=== PATIENT | female | born 1945 | race Caucasian/White ===

== ENCOUNTER 2023-09-12 15:10 | Emergency (ER) | payer MEDICARE, BC, SELFPAY ==
[2023-09-12 15:12] VITALS: BP 170/78
--- NOTE | 2023-09-12 15:49 | ED.GENMED ---
History of Present Illness
<Sadaf Ledesma PA-C - Last Filed: 09/12/23 18:38>
General
Chief Complaint: Head Injury
Source: patient
Exam Limitations: none
Time Seen by Provider: 09/12/23 15:33
Nursing documentation reviewed up to this point in time: agreed with
Travel History
Have you had any contact with someone who has COVID-19?: No
Do you have any symptoms of coronavirus? Fever > 100 degrees, chills, cough, shortness of breath, sore throat, loss of taste or smell, muscle aches, or headache?: No
History of Present Illness
History of Present Illness:
Patient is a 78-year-old female with history subdural hemorrhage, hypertension, GERD presenting to the emergency department for evaluation following unwitnessed fall earlier today. Patient states that she was working at the [employer] a few hours ago
when she lost her footing and fell face forward striking her face on the concrete. Patient did not lose consciousness. She did sustain a laceration to her upper inner lip. She was able to call for help and had some assistance getting up. She sat
in the car briefly and then drove herself to an urgent care for further evaluation. They referred her to the emergency department for which her friend brought her.
At this time�patient denies any headache, nausea/vomiting, blurry vision, neck pain, back pain, confusion. She has some pain surrounding the laceration of her lip.
Of note�patient did have a fall back in May which resulted in a small subdural hematoma that was managed conservatively. She has had some lingering dizziness/vertigo since and is following with physical therapy.
Patient does not take any blood thinners.
Phy Exam
<Sadaf Ledesma PA-C - Last Filed: 09/12/23 18:38>
Physical Exam
Physical Exam:
General: In no apparent distress, nontoxic appearing
HEENT: Atraumatic, normocephalic; pupils equal round and reactive to light bilaterally, extraocular muscles intact, no tenderness surrounding orbit, no tenderness to nasal bridge, approximately 2 cm L-shaped laceration on upper inner lip on mucosal
surface with surrounding contusion, uvula midline, protecting airway
Neck: No cervical spine or midline spinal tenderness, appears supple, trachea midline
CV: Regular rate and rhythm, no evidence of cyanosis
Resp: Lungs clear bilaterally, no accessory muscle use
Abd: Soft, nontender non-distended
Extremities: No deformities, no evidence of cyanosis or edema; minor contusion to left thenar eminence but no tenderness at wrist and full range of motion of wrist
Neuro: alert and oriented x 3 to person, place, time; speech normal; strength 5 out of 5 in upper and lower extremities; sensation normal; cranial nerves II through XII intact bilaterally, normal [id number]
Psych: Normal affect
Skin: Laceration to upper inner lip as described above
Course
<Sadaf Ledesma PA-C - Last Filed: 09/12/23 18:38>
Orders/Labs/Results
Orders:
Orders
09/12/23 15:18
CT Head W/o Iv Contrast Urgent
Comment: Recent subdural hematoma in 05/2023
Reason For Exam: fall onto face from standing, fat upper lip
09/12/23 16:10
Tetanus/Diphth/Acelpertussis [Adacel] 0.5 ml IM .ONCE ONE
Vital Signs
Initial and Last Documented VS:
Initial Vital Signs
Temp Pulse Resp BP Pulse Ox
97.8 F 56 18 170/78 97
09/12/23 15:12 09/12/23 15:12 09/12/23 15:12 09/12/23 15:12 09/12/23 15:12
Last Documented Vital Signs
Temp Pulse Resp BP Pulse Ox
97.8 F 67 18 163/81 97
09/12/23 15:12 09/12/23 18:16 09/12/23 15:12 09/12/23 18:16 09/12/23 15:12
<Mehran Byrne MD - Last Filed: 09/12/23 18:14>
Orders/Labs/Results
Orders:
Orders
09/12/23 15:18
CT Head W/o Iv Contrast Urgent
Comment: Recent subdural hematoma in 05/2023
Reason For Exam: fall onto face from standing, fat upper lip
09/12/23 16:10
Tetanus/Diphth/Acelpertussis [Adacel] 0.5 ml IM .ONCE ONE
Vital Signs
Initial and Last Documented VS:
Initial Vital Signs
Temp Pulse Resp BP Pulse Ox
97.8 F 56 18 170/78 97
09/12/23 15:12 09/12/23 15:12 09/12/23 15:12 09/12/23 15:12 09/12/23 15:12
Last Documented Vital Signs
Temp Pulse Resp BP Pulse Ox
97.8 F 67 18 163/81 97
09/12/23 15:12 09/12/23 18:16 09/12/23 15:12 09/12/23 18:16 09/12/23 15:12
Procedures
<Sadaf Ledesma PA-C - Last Filed: 09/12/23 18:38>
Laceration Closure
Upper inner lip:
Status of Wound: clean
Size of Wound in cm: 2
Description of Wound Edges: sharp
Preparation: cleaned with saline
Anesthesia: 1% Lidocaine with epi and added Na Bicarb to local
Revision/Debridement: routine- no revision
Wound exploration: explored to base- no FB
Type of Closure: interrupted sutures
Skin Closure Material: 5-0 chromic gut
Number of sutures: 2
<Sadaf Ledesma PA-C - Last Filed: 09/12/23 18:38>
MDM/Problems Addressed
Differential Diagnosis Includes:
Not limited to: Laceration, contusion, concussion, doubt inserted parenchymal bleed
MDM/Problems Addressed:
Patient is a 78-year-old female with history of subdural hemorrhage presenting for evaluation s/p mechanical fall with facial strike on cement and associated lip laceration. There was no loss of consciousness. Patient denies any headache,
nausea/vomiting, neck pain, back pain, visual changes. No blood thinners. Vital signs are stable. Exam as above. There are no focal neurologic deficits on exam. She does have an approximately 2 cm L-shaped laceration on her upper inner lip on
mucosal surface. Given history�will check CT head. Will irrigate, close lip laceration. Update Tdap.
CT head negative for any evidence of acute intracranial abnormalities.. Radiologist did make note that prior subdural hemorrhage from 06/01/23 has completely resolved.
Given laceration is gaping�we will close 1-2 absorbable stitches. Area anesthetized with 1% lido with epinephrine. Irrigated with saline. Closed with 2 simple interrupted 5-0 Chromic Gut sutures. Laceration not actively bleeding. Patient
handling oral secretions, feeling fine. Stable for discharge with close return precautions, primary care follow-up as needed.
Chronic conditions affecting care:
Prior subdural hemorrhage, hypertension
Acute Exacerbation and/or Progression of Chronic Illness:
N/A
<Sadaf Ledesma PA-C - Last Filed: 09/12/23 18:38>
*Radiology
Radiology exam reviewed: preliminary read by ED provider and radiology read reviewed
*Pulse Oximetry
Patient hypoxic: no
*EKG
Interpreted by ED Provider?: NA
*Crocodile Farmer Interpretation
Rate: Crocodile Farmer- N/A
*Critical Care Note
Total Time (30-74mins, 75-104mins- exclusive of procedures): Not Applicable
Data Reviewed
Review of Other/Old Records Reveals: Labs, Records and Radiology Studies
Source: patient and previous hospital records
ED Attending Note
<Sadaf Ledesma PA-C - Last Filed: 09/12/23 18:38>
-
Portions of this chart may have been created with voice recognition software.� Occasional wrong word or��sound alike� substitutions may have occurred due to the inherent limitations of voice recognition software.
<Mehran Byrne MD - Last Filed: 09/12/23 18:14>
ED Attending Note
Patient seen and examined by attending physician: Yes
ED Attending Note:
HPI: 78-year-old female with history as documented presents to the emergency room for evaluation after mechanical fall. Patient says that she was walking with her cane and she tripped and fell forward on concrete. She hit her upper lip on the
pavement and sustained a laceration to her inner lip. She did not pass out or lose consciousness. She denies any headache. She denies any other serious injuries during the fall. Denies any nausea or vomiting. Came in for assessment. She does
not take any blood thinners. She did notably have a traumatic subdural hematoma in May after a fall.
ROS: Positive for lip laceration
Physical exam:
General: Awake, alert, oriented x3; no acute distress
Head: Normocephalic, minor contusion to the upper lip on the left, no cephalohematoma
Eyes: Conjunctiva normal
Throat: Airway intact, handling secretions; patient has a somewhat gaping approximate 1 cm laceration on the inner upper lip on the left
Neck: Trachea midline, no cervical spine tenderness, full range of motion without discomfort in the cervical spine
Back: No tenderness in the thoracic or lumbar spine or in the posterior ribs; no signs of trauma to the back or flank
Lungs: Breathing comfortably nondistressed
Heart: Regular rate; no chest wall tenderness
Abd: Soft, non distended, nontender
Neuro: No gross deficits
Skin: Left upper lip contusion, left inner lip laceration
Extremities: Patient has very minor contusion to the left thenar eminence but no significant tenderness in the left wrist, full range of motion of the left wrist without significant discomfort; rest of extremities are atraumatic, warm and
well-perfused and she allows for comfortable range of motion in all extremities
Differential diagnosis: Most rule out intracranial hemorrhage given her history
Medical decision makin-year-old female presents after mechanical trip and fall with facial trauma. She is a minor upper inner lip laceration that is gaping will require 1-2 stitches. No other serious traumatic injuries. Will check CT head.
Update tetanus. Repair laceration.
CT head negative for any acute pathology. Laceration repaired as documented procedure note. Discharged.
Chronic conditions affecting care: N/A
Acute exacerbation or progression of chronic illness: Acutely hypertensive improved without intervention continue to monitor but no indication for emergent antihypertensive treatment at present
History source: Patient
Data reviewed: Prior visits, prior imaging
Medications/testing considered: N/A
Social determinants of health: N/A
Discussion with other providers: N/A
Discharge Plan
Departure
Patient Disposition: Home (Routine Discharge)
Date of Disposition: 09/12/23
Time of Disposition: 18:08
Patient with high blood pressure during this ER visit?: Yes
Discharge Problem:
Head injury, Laceration of lip
Instructions: Wound Care (DC), Minor Head Injury (DC)
Prescriptions:
New
meclizine 12.5 mg tablet
12.5 mg PO TID PRN (Reason: dizziness) Qty: 10 0RF
No Action
cetirizine 10 MG tablet
10 mg PO DAILY
omeprazole 40 MG capsule,delayed release(DR/EC)
40 mg PO DAILY
calcium carbonate 500 MG tablet
500 mg PO MEALS
cholecalciferol (vitamin D3) [Vitamin D3] 25 mcg (1,000 unit) Capsule
25 mcg PO DAILY Qty: 0
solifenacin 5 MG tablet
10 mg PO DAILY
B-complex with vitamin C 1 EACH tablet
1 tab PO Q48H
sertraline 100 mg tablet
100 mg PO DAILY
metoprolol tartrate 25 mg Tablet
12.5 mg PO BID Qty: 30 0RF
Rx Instructions:
Hold for HR<65
meclizine 12.5 mg Tablet
12.5 mg PO Q8HPRN PRN (Reason: dizziness) Qty: 10 0RF
Referrals:
Pj Strauss DO [Family Provider] - Follow up in 5-7 days
Activity Restrictions/Additional Instructions:
� Return to the emergency department with any severe headache, vision changes, intractable nausea/vomiting, confusion, persistent dizziness, or any signs of infection including significant pain and/or swelling, pus draining from wound, high fevers
-As discussed�your head CT today showed no evidence of a bleed or fracture. Please continue to monitor symptoms and return promptly if you notice any worsening in condition
-As discussed�the 2 sutures are placed in your laceration will dissolve. Please return with any signs of infection or see your primary care provider
-You should follow-up with your primary care provider to ensure symptoms are improving and laceration is healing well in the next 5 to 7 days.
Interventions
Interventions:
*Risk Screen - Suicide Last Done: 09/12/23 16:23
*General Assessment Last Done: 09/12/23 16:23
*Neglect/Abuse Screening Last Done: 09/12/23 16:23
*Nursing Disposition Last Done: 09/12/23 18:27
ED- Neurological Assessment Last Done: 09/12/23 16:23
ED-Skin Assessment Last Done: 09/12/23 16:23
Discharge Date and Time
Print Language: GEORGIAN
[2023-09-12] MEDS: ADACEL 0.5 ML IM (16:29)
[2023-09-12 16:32] VITALS: BP 155/67
[2023-09-12 18:16] VITALS: BP 163/81
[2023-09-12 18:27] VITALS: BP 163/81
== END 2023-09-12 18:28 | disposition home or self-care (01) ==
LOC: EMR 15:10
PROVIDERS: EMERGENCY PHYSICIAN Emergency Medicine; FAMILY PHYSICIAN Family Medicine
DX: S09.90XA Unspecified injury of head, initial encounter (principal); S01.511A Laceration without foreign body of lip, initial encounter; W01.0XXA Fall on same level from slipping, tripping and stumbling without subsequent striking against object, initial encounter; I10 Essential (primary) hypertension; K21.9 Gastro-esophageal reflux disease without esophagitis; R03.0 Elevated blood-pressure reading, without diagnosis of hypertension; Z23 Encounter for immunization
CPT/HCPCS: 99282; 12011; 90471; 70450; 90715